=== PATIENT | female | born 1970 | race Caucasian/White ===

== ENCOUNTER 2019-06-18 14:04 | Emergency (ER) | payer OTHER ==
[~2019-06-18] VITALS: Ht 170.2 cm; Wt 95.3 kg
[2019-06-18 14:28] LABS: ABSOLUTE BASOPHILS 0.1 thou/uL (0.0-0.2); ABSOLUTE EOSINOPHILS 0.4 thou/uL (0.0-0.7); ABSOLUTE LYMPHOCYTES 3.1 thou/uL (0.8-5.3); ABSOLUTE MONOCYTES 0.4 thou/uL (0.0-1.2); ABSOLUTE NEUTROPHILS 5.1 thou/uL (1.6-8.1); BASOPHILS 1.3 %; EOSINOPHILS 4.3 %; HEMOGLOBIN 14.8 gm/dL (12.0-15.0); LYMPHOCYTES 34.2 %; MCH 30.8 pg (26.0-34.0); MCHC 34.4 g/dL (28.0-37.0); MCV 89.4 fL (80.0-100.0); MONOCYTES 4.4 %; MPV 9.2 fl. (7.2-11.1); NUCLEATED RBCS 0 /100WBC; PLATELET COUNT* 293 thou/uL (150-400); POLYS 55.8 %; RBC 4.82 mil/uL (4.20-5.00); RDW-CV 14.2 % (10.5-14.5); WBC 9.1 thou/uL (4.0-11.0)
[2019-06-18] MEDS ORDERED: CYMBALTA30 MG PO (14:34)
[2019-06-18] MEDS ORDERED: XANAX1 MG PO (14:34)
[2019-06-18] MEDS ORDERED: ZANTAC 150MG T150 M1 PO (14:35)
[2019-06-18 14:37] LABS: CALCIUM 8.9 mg/dL (8.5-10.1); CREATININE 0.9 mg/dL (0.6-1.3); POTASSIUM 3.9 mmol/L (3.5-5.1)
[2019-06-18 14:38] LABS: URINE BILIRUBIN NEGATIVE (Negative); URINE BLOOD NEGATIVE (Negative); URINE CLARITY CLEAR; URINE COLOR YELLOW; URINE GLUCOSE-RANDOM NEGATIVE (Negative); URINE KETONES NEGATIVE (Negative); URINE LEUKOCYTES-REFLEX NEGATIVE (Negative); URINE NITRITE-REFLEX NEGATIVE (Negative); URINE PROTEIN NEGATIVE (Negative); URINE SPECIFIC GRAVITY <= 1.005 (1.005-1.030); URINE UROBILINOGEN 0.2 E.U./dl (0.2-1.0)
[2019-06-18 14:42] LABS: ALBUMIN 3.8 g/dL (3.4-5.0); TOTAL BILIRUBIN 0.4 mg/dL (<0.1-1.0); TOTAL PROTEIN 7.8 g/dL (6.4-8.2)
[2019-06-18 14:44] LABS: AMP/METHAMP Negative (Negative); BARBITURATES Negative (Negative); BENZODIAZEPINES POSITIVE (Negative); COCAINE Negative (Negative); METHADONE Negative (Negative); OPIATES Negative (Negative); PCP Negative (Negative); THC Negative (Negative)
[2019-06-18 14:54] LABS: ACETAMINOPHEN < 2 ug/mL (10-30); ALCOHOL < 10 mg/dL (<10); SALICYLATE 4.2 mg/dL (2.8-20.0)
[2019-06-19 19:35] VITALS: BP 109/65
== END 2019-06-19 19:30 ==
LOC: M.ERS 14:04
PROVIDERS: Emergency Medicine
DX: R45.851 Suicidal ideations (principal); F41.9 Anxiety disorder, unspecified; F32.9 Major depressive disorder, single episode, unspecified; Z98.51 Tubal ligation status

== ENCOUNTER 2019-07-29 10:35 | Emergency (ER) | payer OTHER ==
[~2019-07-29] VITALS: Ht 175.3 cm; Wt 88.5 kg
[~2019-07-29 10:35] MED LIST: CYMBALTA30 MG PO; XANAX1 MG PO; ZANTAC 150MG T150 M1 PO
[2019-07-29] MEDS ORDERED: DESYREL150 MG PO (10:52)
[2019-07-29] MEDS ORDERED: CLONAZEPAM 0.50.5 M1 (10:52)
[2019-07-29] MEDS ORDERED: CYMBALTA60 MG PO ×2 (10:53→11:02)
[2019-07-29] MEDS ORDERED: CLONAZEPAM 0.50.5 M1 PO (11:02)
[2019-07-29 11:52] VITALS: BP 113/83
== END 2019-07-29 11:54 | disposition home or self-care (01) ==
LOC: M.ERS 10:35
DX: M25.511 Pain in right shoulder (principal); Z76.0 Encounter for issue of repeat prescription; G89.29 Other chronic pain; N80.9 Endometriosis, unspecified; F17.210 Nicotine dependence, cigarettes, uncomplicated; Z88.0 Allergy status to penicillin; Z98.51 Tubal ligation status

== ENCOUNTER 2020-06-13 21:16 | Emergency (ER) | payer OTHER ==
[~2020-06-13] VITALS: Ht 175.3 cm; Wt 93.0 kg
[~2020-06-13 21:16] MED LIST changes: +CLONAZEPAM 0.50.5 M1; +CLONAZEPAM 0.50.5 M1 PO; +CYMBALTA60 MG PO; +DESYREL150 MG PO
[2020-06-13] MEDS ORDERED: LYRICA 75 MG CA75 MG PO (21:28)
[2020-06-13] MEDS ORDERED: KEFLEX500 M1 PO (22:26)
[2020-06-13] MEDS ORDERED: GENTAK5 ML EA. EYE (22:26)
[2020-06-13 22:31] VITALS: BP 135/76
== END 2020-06-13 22:32 | disposition home or self-care (01) ==
LOC: M.ERS 21:16
DX: H01.005 Unspecified blepharitis left lower eyelid (principal); Z98.890 Other specified postprocedural states; Z88.6 Allergy status to analgesic agent; Z88.0 Allergy status to penicillin; Z88.8 Allergy status to other drugs, medicaments and biological substances